=== PATIENT | female | born 1995 | race Caucasian/White ===

== ENCOUNTER 2016-03-21 10:44 | Emergency (ER) | payer OTHER ==
[2016-03-21 11:42] LABS: SPECIFIC GRAVITY 1.015 (1.001-1.030); URINE BILIRUBIN NEGATIVE (NEGATIVE); URINE BLOOD NEGATIVE (NEGATIVE); URINE GLUCOSE (UA) NEGATIVE (NEGATIVE); URINE LEUKOCYTE ESTERASE TRACE (NEGATIVE); URINE NITRITE NEGATIVE (NEGATIVE); URINE PROTEIN 2+ (NEGATIVE); URINE UROBILINOGEN NORMAL (0-1 mg/dl)
[2016-03-21 11:43] LABS: URINE APPEARANCE CLEAR; URINE COLOR YELLOW
[2016-03-21 11:49] LABS: HCG,QUALITATIVE URINE NEGATIVE
[2016-03-21 11:52] LABS: AMPHETAMINES/METHAMPHETAMINES POSITIVE (NEGATIVE); COCAINE NEGATIVE (NEGATIVE); MARIJUANA NEGATIVE (NEGATIVE); METHADONE NEGATIVE (NEGATIVE); OPIATES NEGATIVE (NEGATIVE); TRICYCLIC ANTIDEPRESSANTS NEGATIVE (NEGATIVE)
[2016-03-21 12:00] LABS: URINE BACTERIA FEW; URINE MUCUS 1+; URINE WBC 0-1 /hpf
== END 2016-03-21 14:30 | disposition home or self-care (01) ==
LOC: ED 10:44
DX: Z00.8 Encounter for other general examination (principal); L02.412 Cutaneous abscess of left axilla; F15.10 Other stimulant abuse, uncomplicated; Z32.02 Encounter for pregnancy test, result negative